=== PATIENT | male | born 1975 | race American Indian/Alaskan Native ===

== ENCOUNTER 2017-04-11 19:56 | Inpatient (IN) | payer SELFPAY ==
[2017-04-11] MEDS ORDERED: NACL 0.9% 500 ML 500 ML IV ONE (20:11)
--- NOTE | 2017-04-11 20:44 | XRay Report ---
FINAL REPORT PROCEDURE: XR CHEST 1V AP TECHNIQUE: Chest radiograph anteroposterior view. CPT 30645 HISTORY: possible Sepsis COMPARISON: No prior studies are available for comparison. FINDINGS: Heart: Normal. Mediastinum/Vessels: Normal. Lungs/Pleural space: Normal. Bony thorax: No acute osseous abnormality. Life support devices: None. IMPRESSION: No acute cardiopulmonary abnormality.
[2017-04-11 20:58] LABS: Albumin 4.1 g/dL (3.9-5); Albumin/Globulin Ratio 1.6 %; BUN/Creatinine Ratio 12.63; Bilirubin,Total 1.2 mg/dL (0.1-1.2); Calcium 9.9 mg/dL (8.4-10.2); Chloride 94.7 mmol/L (98-107); Potassium 3.4 mmol/L (3.6-5.0); Total Protein 6.7 g/dL (6.3-8.2)
[2017-04-11 20:59] LABS: Basophils % (Auto) 0.2 % (0.0-1.8); Eosinophils % (Auto) 0.3 % (0.0-4.3); Hematocrit 44.4 % (35.5-45.6); Hemoglobin 14.3 gm/dl (11.8-15.2); Mean Corpuscular HGB Conc 32 % (32-34); Mean Corpuscular Hemoglobin 28 pg (28-32); Mean Corpuscular Volume 88 fl (84-94); Platelet Count 117 K/mm3 (140-440); Red Blood Count 5.07 M/mm3 (3.65-5.03); Red Cell Distribution Width 16.1 % (13.2-15.2); White Blood Count 13.7 K/mm3 (4.5-11.0)
[2017-04-11 21:27] LABS: INR 1.05 (0.87-1.13)
[2017-04-11 21:54] LABS: Bilirubin,Urine NEG (Negative); Blood,Urine MOD (Negative); Ketones,Urine TR mg/dL (Negative); Leukocyte Esterase,Urine MOD (Negative); Mucus,Urine FEW /HPF; Nitrite,Urine NEG (Negative); Urobilinogen,Urine < 2.0 mg/dL (<2.0)
[2017-04-11] MEDS ORDERED: NACL 0.9% 1000 ML IV ONE (22:05)
[2017-04-11] MEDS ORDERED: MAXIPIME/NS 2 GM/100 ML 2 GM/100 ML BAG IV ONE (22:05)
--- NOTE | 2017-04-11 22:12 | Emergency Department Report ---
ED Fever HPI - General Chief Complaint: Fever Stated Complaint: CONNIE, DIARRHEA, NO ENERGY Time Seen by Provider: 04/11/17 21:59 Source: patient - History of Present Illness Initial Comments: Patient is a 41-year-old male with a history of renal transplant here with 3 days of worsening weakness fever or chills. Patient states that he had a fever subjectively at home but believes it's resolved now. He feels weak and has been unable to get out of his bed for the last couple days. No nausea vomiting abdominal pain chest pain. He does not have cough. No other infectious exposures. He has been taking his transplant medications. Timing/Duration: intermittent Fever Severity/Quality: subjective Associated Symptoms: muscle aches, weakness. denies: abdominal pain, chest pain , confusion, nausea/vomiting, shortness of breath, stiff neck ED Review of Systems ROS: Stated complaint: CONNIE, DIARRHEA, NO ENERGY Other details as noted in HPI Constitutional: denies: fever, malaise Eyes: denies: eye pain, vision change ENT: denies: ear pain, throat pain, dental pain Respiratory: denies: cough, orthopnea Gastrointestinal: denies: nausea, vomiting, constipation Genitourinary: denies: urgency, dysuria Neurological: denies: headache, weakness Psychiatric: denies: anxiety ED Past Medical Hx - Past Medical History Previous Medical History?: Yes Hx Hypertension: Yes Additional medical history: RF - Surgical History Past Surgical History?: Yes Additional Surgical History: Kidney Transplant. Bilateral Knee. Dyalysis Shunts - Family History Family history: no significant - Social History Smoking Status: Current Some Day Smoker Substance Use Type: None - Medications Home Medications: Home Medications Medication Instructions Recorded Confirmed Last Taken Type Mycophenolate 500 mg PO BID 04/11/17 04/11/17 Unknown History Prednisone 5 mg PO DAILY 04/11/17 04/11/17 Unknown History amLODIPine 5 mg PO DAILY 04/11/17 04/11/17 Unknown History ED Physical Exam - General Limitations: No Limitations General appearance: alert, in no apparent distress - Head Head exam: Present: atraumatic, normocephalic - Eye Eye exam: Present: normal appearance - Respiratory Respiratory exam: Present: normal lung sounds bilaterally, respiratory distress - Cardiovascular Cardiovascular Exam: Present: regular rate, normal rhythm - GI/Abdominal GI/Abdominal exam: Present: soft. Absent: distended - Extremities Exam Extremities exam: Present: normal inspection, full ROM - Back Exam Back exam: Present: normal inspection, full ROM - Neurological Exam Neurological exam: Present: alert, oriented X3 ED Course Vital Signs 04/11/17 04/11/17 20:00 22:19 Temperature 98.2 F 98.2 F Pulse Rate 96 H 85 Respiratory 20 20 Rate Blood Pressure 124/85 123/72 [Right] O2 Sat by Pulse 96 97 Oximetry ED Medical Decision Making - Lab Data Result diagrams: 04/11/17 20:19 04/11/17 20:19 Laboratory Results - last 24 hr 04/11/17 04/11/17 04/11/17 20:19 20:19 20:19 WBC 13.7 H RBC 5.07 H Hgb 14.3 Hct 44.4 MCV 88 MCH 28 MCHC 32 RDW 16.1 H Plt Count 117 L Lymph % (Auto) 7.8 L [place] % (Auto) 6.6 Eos % (Auto) 0.3 Baso % (Auto) 0.2 Lymph # 1.1 L [place] # 0.9 H Eos # 0.0 Baso # 0.0 Seg Neutrophils % 85.1 H Seg Neutrophils # 11.7 H PT 14.2 INR 1.05 VBG pH Sodium 135 L Potassium 3.4 L Chloride 94.7 L Carbon Dioxide 20 L Anion Gap 24 BUN 24 H Creatinine 1.9 H Estimated GFR 48 BUN/Creatinine Ratio 12.63 Glucose 107 H Lactic Acid Calcium 9.9 Total Bilirubin 1.20 AST 15 ALT 9 Alkaline Phosphatase 70 Total Protein 6.7 Albumin 4.1 Albumin/Globulin Ratio 1.6 Urine Color Urine Turbidity Urine pH Ur Specific [place] Urine Protein Urine Glucose (UA) Urine Ketones Urine Blood Urine Nitrite Urine Bilirubin Urine Urobilinogen Ur Leukocyte Esterase Urine WBC (Auto) Urine RBC (Auto) U Epithel Cells (Auto) Urine Mucus 04/11/17 04/11/17 04/11/17 20:19 20:19 20:22 WBC RBC Hgb Hct MCV MCH MCHC RDW Plt Count Lymph % (Auto) [place] % (Auto) Eos % (Auto) Baso % (Auto) Lymph # [place] # Eos # Baso # Seg Neutrophils % Seg Neutrophils # PT INR VBG pH 7.384 Sodium Potassium Chloride Carbon Dioxide Anion Gap BUN Creatinine Estimated GFR BUN/Creatinine Ratio Glucose Lactic Acid 0.80 Calcium Total Bilirubin AST ALT Alkaline Phosphatase Total Protein Albumin Albumin/Globulin Ratio Urine Color Yellow Urine Turbidity Clear Urine pH 5.0 Ur Specific [place] 1.011 Urine Protein 30 mg/dl Urine Glucose (UA) Neg Urine Ketones Tr Urine Blood Mod Urine Nitrite Neg Urine Bilirubin Neg Urine Urobilinogen < 2.0 Ur Leukocyte Esterase Mod Urine WBC (Auto) 20.0 H Urine RBC (Auto) 9.0 U Epithel Cells (Auto) 2.0 Urine Mucus Few - Medical Decision Making Patient is a 41-year-old male with likely sepsis. He has a history of renal transplant and is on immunosuppressants. His white count 13.7 with a urine WBC of 29. Given these findings I would treat him for sepsis. He is ordered 30 mL/ kg IV fluid cefepime for IV antibiotics he has been pancultured. Portions of this chart were dictated with dictation software. There may be dictation errors contained within this note. Critical Care Time: Yes (35) Critical care attestation.: If time is entered above; I have spent that time in minutes in the direct care of this critically ill patient, excluding procedure time. Critical Care Time: 35 ED Disposition Clinical Impression: Sepsis, UTI (urinary tract infection) Disposition: DC-[id number] OP ADMIT IP TO THIS HOSP Is pt being admited?: Yes Condition: Stable Referrals: PRIMARY CARE, [Primary Care Provider] - 3-5 Days
[2017-04-12] MEDS ORDERED: ZOFRAN IV PRN (01:14)
[2017-04-12] MEDS ORDERED: TYLENOL PO PRN (01:14)
[2017-04-12] MEDS ORDERED: DULCOLAX PR PRN (01:14)
[2017-04-12] MEDS ORDERED: PERCOCET 5/325 PO PRN (01:14)
--- NOTE | 2017-04-12 04:27 | History and Physical Report ---
History of Present Illness Date of examination: 04/12/17 Date of admission: 04/12/17 01:14 History of present illness: 41 -year-old man with a history of kidney transplant, hypertension comes emergency room with complaining of weak, difficulty doing his ADLs. Complaining of fever chills Patient denies chest pain, palpitation, shortness of breath, cough, abdominal pain, hematochezia, dysuria, frequency, focal weakness, dysarthria, polydipsia polyuria, hot or cold intolerance, easy bruisability, or rash or bleeding from mucosal membrane, rhinorrhea, epistaxis, earache, tinnitus, blurry vision, eye discharge, anxiety, depression. Other review of systems negative PAST SURGICAL HISTORY: Kidney transplant SOCIAL HISTORY: Denies alcohol, drugs, smoke cigarettes FAMILY HISTORY: Hypertension Medications and Allergies Allergies Allergy/AdvReac Type Severity Reaction Status Date / Time aspirin AdvReac Unknown Verified 04/11/17 20:10 Home Medications Medication Instructions Recorded Confirmed Last Taken Type Mycophenolate 500 mg PO BID 04/11/17 04/11/17 Unknown History Prednisone 5 mg PO DAILY 04/11/17 04/11/17 Unknown History amLODIPine 5 mg PO DAILY 04/11/17 04/11/17 Unknown History Active Meds: Active Medications Acetaminophen (Tylenol) 650 mg PO Q4H PRN PRN Reason: Pain MILD(1-3)/Fever >100.5/BEGUM Bisacodyl (Dulcolax) [address] QDAY PRN PRN Reason: Constipation unrelieved by MOM Ceftriaxone Sodium (Rocephin/Ns 1 Gm/50 Ml) 1 gm in 50 mls @ 100 mls/hr IV Q24H CHANELLE Miscellaneous Medication (Amlodipine) 5 mg PO DAILY CHANELLE Miscellaneous Medication (Mycophenolate) 500 mg PO BID CHANELLE Miscellaneous Medication (Prednisone) 5 mg PO DAILY CHANELLE Ondansetron HCl (Zofran) 4 mg IV Q8H PRN PRN Reason: N/V unrelieved by Reglan Oxycodone/Acetaminophen (Percocet 5/325) 1 tab PO Q6H PRN PRN Reason: Pain, Moderate (4-6) Exam - Physical Exam Narrative exam: Gen. appearance: Patient lying in bed, no apparent distress HEENT: Normocephalic, atraumatic, pupils equally round and reactive to light, extraocular movement intact, and no sclericterus,. No JVD or thyromegaly or nodule,neck supple, no carotid bruit ,mucous membranes moist, no exudate or erythema Heart: S1, S2, regular rate and rhythm Lungs: Clear to auscultation bilaterally, breathing comfortable Abdomen: Positive bowel sounds, nontender, nondistended, no organomegaly Extremity: No edema, cyanosis, clubbing Skin: No rash, nodules, warm, dry Neuro: Oriented 3, cranial nerves II-12 intact, speech is fluent, motor and sensory intact - Constitutional Vitals: Temp Pulse Resp BP Pulse Ox 98 F 74 16 126/63 96 04/11/17 23:40 04/12/17 01:38 04/12/17 01:38 04/12/17 01:38 04/12/17 01:38 Results - Labs CBC & Chem 7: 04/11/17 20:19 04/11/17 20:19 Assessment and Plan Failure to thrive UTI s/p Kidney transplant Admit to medicine Diet IV Rocephin, IV fluids, continue outpatient medications, start DVT prophylaxis
[2017-04-12] MEDS ORDERED: NACL 0.9% 1000 ML 1,000 ML IV SCH (05:00)
[2017-04-12] MEDS: DELTASONE PO SCH (09:31)
[2017-04-12] MEDS: CELLCEPT PO SCH ×2 (09:32→22:15)
[2017-04-12] MEDS: ROCEPHIN/NS 1 GM/50 ML 1 GM/50 ML BAG IV SCH (09:33)
[2017-04-12] MEDS ORDERED: NORVASC PO SCH (10:00)
[2017-04-12] MEDS ORDERED: NON-FORMULARY (Amlodipine 5 MG) PO SCH (10:00)
[2017-04-12] MEDS ORDERED: NON-FORMULARY (Mycophenolate 500 MG) PO SCH (10:00)
[2017-04-12] MEDS ORDERED: NON-FORMULARY (Prednisone 5 MG) PO SCH (10:00)
--- NOTE | 2017-04-13 01:22 | Admit Criteria Form ---
Admission Criteria Documentation: URINARY COMPLICATIONS Clinical Indications for Inpatient Care (Place 'X' for any and all applicable criteria): Ongoing inpatient care may be indicated for urinary complications with ANY ONE of the following: [X ]I. Urinary tract infection requiring inpatient care as indicated by ANY ONE of the following(8)(19)(20): [ ]a) Severe symptoms (eg, high fever, severe pain) [ ]b) Vomiting or dehydration requiring ongoing inpatient care [X ]c) IV antibiotic needs that cannot be managed at lower level of care [ ]d) Hemodynamic instability [ ]e) Obstruction of collecting system by stone or tumor [ ]II. Urinary retention requiring drainage or surgery (3)(4)(5)(17)(18) [ ]III. Renal failure (Use Renal Failure Criteria for further information.) [ ]IV. Oliguria(30) [ ]V. Post obstructive diuresis requiring close monitoring of urine output and intravenous compensation for excessive fluid losses(33) Extended stay beyond goal length of stay for primary condition may be needed until ALL of the following are present(3)(4)(5)(8): [ ]a) Renal function (creatinine) at baseline, or daily decreases in creatinine consistent with renal function return [ ]b) Voiding adequately or with urinary catheter or percutaneous suprapubic tube and management regimen in place that is performable at lower level of care. [ ]c) Urine output adequate [ ]d) Fever absent or resolving [ ]e) Infection absent or treatable at next level of care The original [employer] content created by [employer] has been revised. The portions of the content which have been revised are identified through the use of italic text or in bold, and [facility] has neither reviewed nor approved the modified material. All other unmodified content is copyright [employer] Please see references footnoted in the original [employer] edition 2016 Admission Criteria Met: Yes
[2017-04-13 05:38] LABS: Basophils % (Auto) 0.1 % (0.0-1.8); Hematocrit 39.4 % (35.5-45.6); Hemoglobin 13.1 gm/dl (11.8-15.2); Mean Corpuscular HGB Conc 33 % (32-34); Mean Corpuscular Hemoglobin 29 pg (28-32); Mean Corpuscular Volume 87 fl (84-94); Platelet Count 127 K/mm3 (140-440); Red Blood Count 4.56 M/mm3 (3.65-5.03); White Blood Count 8.7 K/mm3 (4.5-11.0)
[2017-04-13 05:51] LABS: Anion Gap 19 mmol/L; BUN/Creatinine Ratio 15.71; Blood Urea Nitrogen 22 mg/dL (9-20); Calcium 9.9 mg/dL (8.4-10.2); Carbon Dioxide 22 mmol/L (22-30); Chloride 99.5 mmol/L (98-107); Glucose 98 mg/dL (75-100); Potassium 3.3 mmol/L (3.6-5.0); Sodium 137 mmol/L (137-145)
[2017-04-13 07:53] VITALS: BP 181/107
--- NOTE | 2017-04-13 08:27 | Progress Note ---
Assessment and Plan Assessment and plan: 41 -year-old man with a history of kidney transplant, hypertension comes emergency room with complaining of weak, difficulty doing his ADLs. Complaining of fever chills Failure to thrive Sepsis/UTI * improving, * continue rocephin , * fup urine cx * Blood cx NGTD DULCE in a Kidney transplant patient -likely due to sepsis and vasomotor nephropathy * continue anti-rejection meds * continue IVF Htn urgency increase norvasc dose to 10mg Hypokalemia * replete PO DVT ppx lovenox Hospitalist Physical - Constitutional Vitals: Temp Pulse Resp BP Pulse Ox 97.6 F 94 H 20 181/107 98 04/13/17 07:49 04/13/17 07:49 04/13/17 07:49 04/13/17 07:49 04/13/17 08:06 Results - Labs CBC & Chem 7: 04/13/17 04:54 04/13/17 04:54 Labs: Laboratory Last Values WBC 8.7 K/mm3 (4.5-11.0) 04/13/17 04:54 RBC 4.56 M/mm3 (3.65-5.03) 04/13/17 04:54 Hgb 13.1 gm/dl (11.8-15.2) 04/13/17 04:54 Hct 39.4 % (35.5-45.6) 04/13/17 04:54 MCV 87 fl (84-94) 04/13/17 04:54 MCH 29 pg (28-32) 04/13/17 04:54 MCHC 33 % (32-34) 04/13/17 04:54 RDW 16.0 % (13.2-15.2) H 04/13/17 04:54 Plt Count 127 K/mm3 (140-440) L 04/13/17 04:54 Lymph % (Auto) 14.6 % (13.4-35.0) 04/13/17 04:54 [place] % (Auto) 4.7 % (0.0-7.3) 04/13/17 04:54 Eos % (Auto) 1.0 % (0.0-4.3) 04/13/17 04:54 Baso % (Auto) 0.1 % (0.0-1.8) 04/13/17 04:54 Lymph # 1.3 K/mm3 (1.2-5.4) 04/13/17 04:54 [place] # 0.4 K/mm3 (0.0-0.8) 04/13/17 04:54 Eos # 0.1 K/mm3 (0.0-0.4) 04/13/17 04:54 Baso # 0.0 K/mm3 (0.0-0.1) 04/13/17 04:54 Seg Neutrophils % 79.6 % (40.0-70.0) H 04/13/17 04:54 Seg Neutrophils # 6.9 K/mm3 (1.8-7.7) 04/13/17 04:54 PT 14.2 Sec. (12.2-14.9) 04/11/17 20:19 INR 1.05 (0.87-1.13) 04/11/17 20:19 VBG pH 7.384 (7.320-7.420) 04/11/17 20:19 Sodium 137 mmol/L (137-145) 04/13/17 04:54 Potassium 3.3 mmol/L (3.6-5.0) L 04/13/17 04:54 Chloride 99.5 mmol/L (98-107) 04/13/17 04:54 Carbon Dioxide 22 mmol/L (22-30) 04/13/17 04:54 Anion Gap 19 mmol/L 04/13/17 04:54 BUN 22 mg/dL (9-20) H 04/13/17 04:54 Creatinine 1.4 mg/dL (0.8-1.5) 04/13/17 04:54 Estimated GFR > 60 ml/min 04/13/17 04:54 BUN/Creatinine Ratio 15.71 % 04/13/17 04:54 Glucose 98 mg/dL (75-100) 04/13/17 04:54 Lactic Acid 0.60 mmol/L (0.7-2.0) L 04/12/17 01:11 Calcium 9.9 mg/dL (8.4-10.2) 04/13/17 04:54 Total Bilirubin 1.20 mg/dL (0.1-1.2) 04/11/17 20:19 AST 15 units/L (5-40) 04/11/17 20:19 ALT 9 units/L (7-56) 04/11/17 20:19 Alkaline Phosphatase 70 units/L (35-129) 04/11/17 20:19 Total Protein 6.7 g/dL (6.3-8.2) 04/11/17 20:19 Albumin 4.1 g/dL (3.9-5) 04/11/17 20:19 Albumin/Globulin Ratio 1.6 % 04/11/17 20: Urine Color Yellow (Yellow) 04/11/17 20:22 Urine Turbidity Clear (Clear) 04/11/17 20: Urine pH 5.0 (5.0-7.0) 04/11/17 20: Ur Specific [place] 1.011 (1.003-1.030) 04/11/17 20: Urine Protein 30 mg/dl mg/dL (Negative) 04/11/17 20:22 Urine Glucose (UA) Neg mg/dL (Negative) 04/11/17 20: Urine Ketones Tr mg/dL (Negative) 04/11/17 20:22 Urine Blood Mod (Negative) 04/11/17 20:22 Urine Nitrite Neg (Negative) 04/11/17 20:22 Urine Bilirubin Neg (Negative) 04/11/17 20:22 Urine Urobilinogen < 2.0 mg/dL (<2.0) 04/11/17 20:22 Ur Leukocyte Esterase Mod (Negative) 04/11/17 20:22 Urine WBC (Auto) 20.0 /HPF (0.0-6.0) H 04/11/17 20:22 Urine RBC (Auto) 9.0 /HPF (0.0-6.0) 04/11/17 20:22 U Epithel Cells (Auto) 2.0 /HPF (0-13.0) 04/11/17 20:22 Urine Mucus Few /HPF 04/11/17 20:22
[2017-04-13] MEDS ORDERED: NORVASC PO SCH ×2 (08:36→10:00)
[2017-04-13] MEDS ORDERED: K-DUR PO ONE (09:00)
[2017-04-13] MEDS: DELTASONE PO SCH (12:39)
[2017-04-13] MEDS: ROCEPHIN/NS 1 GM/50 ML 1 GM/50 ML BAG IV SCH (12:40)
[2017-04-13] MEDS: CELLCEPT PO SCH (12:41)
--- NOTE | 2017-04-13 17:59 | Event Note ---
Date: 04/13/17 RN alerted me that Patient eloped, he was not seen by me
== END 2017-04-13 15:00 | disposition left against medical advice (07) | DRG 872 ==
LOC: ED 19:56 → 3A 04-12 01:14
PROVIDERS: ADMIT Internal Medicine; ATTEND Internal Medicine
DX: A41.9 Sepsis, unspecified organism (principal); N39.0 Urinary tract infection, site not specified; Z94.0 Kidney transplant status; I10 Essential (primary) hypertension; Z82.49 Family history of ischemic heart disease and other diseases of the circulatory system; Z88.6 Allergy status to analgesic agent; R62.7 Adult failure to thrive; Z53.21 Procedure and treatment not carried out due to patient leaving prior to being seen by health care provider
CPT/HCPCS: 36415; 71010; 80048; 80053; 81001; 82140; 82805; 85025; 85610; 87040; 87086; 93005; 93010; 96365; J0692; J0696; J7030; J7512; J7517

== ENCOUNTER 2020-09-05 16:51 | Emergency (ER) | payer OTHER ==
[2020-09-05 17:27] VITALS: BP 176/112
[2020-09-05] MEDS ORDERED: ACETAMINOPHEN 500 MG TAB PO ONE (19:40)
[2020-09-05] MEDS ORDERED: CYCLOBENZAPRINE 10 MG TAB PO ONE (19:42)
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
== END 2020-09-05 21:29 | disposition home or self-care (01) ==
LOC: ED 16:51
DX: M62.830 Muscle spasm of back (principal); M62.838 Other muscle spasm; M54.5 Low back pain; I10 Essential (primary) hypertension; F17.200 Nicotine dependence, unspecified, uncomplicated; V49.59XA Passenger injured in collision with other motor vehicles in traffic accident, initial encounter; Y93.89 Activity, other specified; Y92.488 Other paved roadways as the place of occurrence of the external cause; Y99.8 Other external cause status
CPT/HCPCS: 72072; 72100; 72125; 99284

== ENCOUNTER 2021-02-13 02:05 | Emergency (ER) | payer SELFPAY ==
[2021-02-13 03:01] LABS: Basophils # (Auto) 0.1 K/mm3 (0.0-0.1); Basophils % (Auto) 0.7 % (0.0-1.8); Eosinophils % (Auto) 0.4 % (0.0-4.3); Hematocrit 43.3 % (35.5-45.6); Hemoglobin 14.1 gm/dl (11.8-15.2); Lymphocytes # (Auto) 1.3 K/mm3 (1.2-5.4); Lymphocytes % (Auto) 14.3 % (13.4-35.0); Mean Corpuscular HGB Conc 33 % (32-34); Mean Corpuscular Volume 89 fl (84-94); Monocytes # (Auto) 0.6 K/mm3 (0.0-0.8); Platelet Count 219 K/mm3 (140-440); Red Blood Count 4.86 M/mm3 (3.65-5.03); Red Cell Distribution Width 17.6 % (13.2-15.2)
[2021-02-13 03:06] LABS: Calcium 10.6 mg/dL (8.4-10.2)
[2021-02-13] MEDS ORDERED: SODIUM CHLORIDE 0.9% 500 ML 500 ML IV ONE (09:20)
--- NOTE | 2021-02-13 09:33 | Emergency Department Report ---
ED General Adult HPI - General Chief complaint: Medical Clearance Stated complaint: PAIN;FINGER NUMBNESS PUI?: No Time Seen by Provider: 02/13/21 09:14 Source: patient Mode of arrival: Ambulatory Limitations: No Limitations - History of Present Illness Initial comments: Mr. [id number] -[place] male that comes to the emergency room complaining of fatigue and generalized body aches. Of importance he states that he has had a kidney transplant 7 years ago and he has run out of his CellCept and prednisone. He has not taken it for 2 days. He does state that he is on a third immune suppression drug but he cannot recall the name of it he says it starts with a T. He is also taking Norvasc for his blood pressure. However, he states he has been here so long in the ER he has not taken it this morning. Patient's radiology equipment servicer is at [facility]. Patient has not required HD since prior to his transplant. Patient denies fever or chills. He denies shortness of breath or chest pain. He denies any nausea or vomiting. He denies fever or chills. Patient states this is how he feels when he has urinary tract infection. He denies being concerned for STDs. He denies penile discharge. Patient is ambulatory nontoxic and [id number] on arrival to ER. -: Gradual, days(s) Consistency: intermittent Improves with: none Worsens with: none Associated Symptoms: denies other symptoms Treatments Prior to Arrival: none - Related Data Home Medications Medication Instructions Recorded Confirmed Last Taken Mycophenolate 500 mg PO BID 04/11/17 04/11/17 Unknown Prednisone 5 mg PO DAILY 04/11/17 04/11/17 Unknown amLODIPine 5 mg PO DAILY 04/11/17 04/11/17 Unknown Previous Rx's Medication Instructions Recorded Last Taken Type Mycophenolate [Cellcept] 500 mg PO BID #14 tablet 02/13/21 Unknown Rx levoFLOXacin [Levaquin] 250 mg PO QDAY #5 tablet 02/13/21 Unknown Rx predniSONE [Deltasone] 5 mg PO QDAY #14 tab 02/13/21 Unknown Rx Allergies Allergy/AdvReac Type Severity Reaction Status Date / Time aspirin AdvReac Unknown Verified 04/11/17 20:10 ED Review of Systems ROS: Stated complaint: PAIN;FINGER NUMBNESS Other details as noted in HPI Comment: All other systems reviewed and negative ED Past Medical Hx - Past Medical History Previous Medical History?: Yes Hx Hypertension: Yes Hx Renal Disease: Yes (sp transplant 2017) Additional medical history: med non adherence - Surgical History Past Surgical History?: Yes Additional Surgical History: Kidney Transplant-2017. Bilateral Knee. Dyalysis Shunts-nonpatent per patient - Social History Smoking Status: Current Every Day Smoker - Medications Home Medications: Home Medications Medication Instructions Recorded Confirmed Last Taken Type Mycophenolate 500 mg PO BID 04/11/17 04/11/17 Unknown History Prednisone 5 mg PO DAILY 04/11/17 04/11/17 Unknown History amLODIPine 5 mg PO DAILY 04/11/17 04/11/17 Unknown History Mycophenolate [Cellcept] 500 mg PO BID #14 tablet 02/13/21 Unknown Rx levoFLOXacin [Levaquin] 250 mg PO QDAY #5 tablet 02/13/21 Unknown Rx predniSONE [Deltasone] 5 mg PO QDAY #14 tab 02/13/21 Unknown Rx ED Physical Exam - General Limitations: No Limitations General appearance: alert, in no apparent distress - Head Head exam: Present: atraumatic, normocephalic - Eye Eye exam: Present: normal appearance - ENT ENT exam: Present: mucous membranes moist - Neck Neck exam: Present: normal inspection - Respiratory Respiratory exam: Present: normal lung sounds bilaterally. Absent: respiratory distress - Cardiovascular Cardiovascular Exam: Present: regular rate, normal rhythm. Absent: systolic murmur, diastolic murmur, rubs, gallop - GI/Abdominal GI/Abdominal exam: Present: soft, normal bowel sounds - Rectal Rectal exam: Present: deferred - Extremities Exam Extremities exam: Present: normal inspection - Back Exam Back exam: Present: normal inspection - Neurological Exam Neurological exam: Present: alert, oriented X3 - Psychiatric Psychiatric exam: Present: normal affect, normal mood - Skin Skin exam: Present: warm, dry, intact, normal color. Absent: rash ED Course Vital Signs 02/13/21 02/13/21 02/13/21 02:20 06:37 10:41 Temperature 98.8 F Pulse Rate 111 H 72 88 Respiratory 17 16 Rate Blood Pressure 172/110 Blood Pressure 154/101 175/105 [Right] O2 Sat by Pulse 95 100 99 Oximetry ED Medical Decision Making - Lab Data Result diagrams: 02/13/21 02:33 02/13/21 09:20 - Radiology Data Radiology results: report reviewed, image reviewed No acute process - Medical Decision Making Labs 02/13/21 02/13/21 02/13/21 02:33 02:33 09:20 WBC 9.4 RBC 4.86 Hgb 14.1 Hct 43.3 MCV 89 MCH 29 MCHC 33 RDW 17.6 H Plt Count 219 Lymph % (Auto) 14.3 [place] % (Auto) 6.0 Eos % (Auto) 0.4 Baso % (Auto) 0.7 Lymph # (Auto) 1.3 [place] # (Auto) 0.6 Eos # (Auto) 0.0 Baso # (Auto) 0.1 Seg Neutrophils % 78.6 H Seg Neutrophils # 7.4 Sodium 142 139 Potassium 4.6 4.2 Chloride 105.5 105.0 Carbon Dioxide 25 25 Anion Gap 16 13 BUN 26 H 26 H Creatinine 2.2 H 2.1 H Estimated GFR 40 42 BUN/Creatinine Ratio 12 12 Glucose 74 L 87 Calcium 10.6 H 9.9 Phosphorus 3.80 Total Creatine Kinase NT-Pro-B Natriuret Pep 02/13/21 09:20 WBC RBC Hgb Hct MCV MCH MCHC RDW Plt Count Lymph % (Auto) [place] % (Auto) Eos % (Auto) Baso % (Auto) Lymph # (Auto) [place] # (Auto) Eos # (Auto) Baso # (Auto) Seg Neutrophils % Seg Neutrophils # Sodium Potassium Chloride Carbon Dioxide Anion Gap BUN Creatinine Estimated GFR BUN/Creatinine Ratio Glucose Calcium Phosphorus Total Creatine Kinase 141 NT-Pro-B Natriuret Pep 182.3 Vital Signs 02/13/21 02/13/21 02:20 06:37 Temperature 98.8 F Pulse Rate 111 H 72 Respiratory 17 16 Rate Blood Pressure 172/110 Blood Pressure 154/101 [Right] O2 Sat by Pulse 95 100 Oximetry Lab Results 02/13/21 02/13/21 02/13/21 Range/Units 02:33 02:33 09:20 WBC 9.4 (4.5-11.0) K/mm3 RBC 4.86 (3.65-5.03) M/mm3 Hgb 14.1 (11.8-15.2) gm/dl Hct 43.3 (35.5-45.6) % MCV 89 (84-94) fl MCH 29 (28-32) pg MCHC 33 (32-34) % RDW 17.6 H (13.2-15.2) % Plt Count 219 (140-440) K/mm3 Lymph % (Auto) 14.3 (13.4-35.0) % [place] % (Auto) 6.0 (0.0-7.3) % Eos % (Auto) 0.4 (0.0-4.3) % Baso % (Auto) 0.7 (0.0-1.8) % Lymph # (Auto) 1.3 (1.2-5.4) K/mm3 [place] # (Auto) 0.6 (0.0-0.8) K/mm3 Eos # (Auto) 0.0 (0.0-0.4) K/mm3 Baso # (Auto) 0.1 (0.0-0.1) K/mm3 Seg Neutrophils % 78.6 H (40.0-70.0) % Seg Neutrophils # 7.4 (1.8-7.7) K/mm3 Sodium 142 139 (137-145) mmol/L Potassium 4.6 4.2 (3.6-5.0) mmol/L Chloride 105.5 105.0 (98-107) mmol/L Carbon Dioxide 25 25 (22-30) mmol/L Anion Gap 16 13 mmol/L BUN 26 H 26 H (9-20) mg/dL Creatinine 2.2 H 2.1 H (0.8-1.3) mg/dL Estimated GFR 40 42 ml/min BUN/Creatinine Ratio 12 12 % Glucose 74 L 87 (75-100) mg/dL Calcium 10.6 H 9.9 (8.4-10.2) mg/dL Phosphorus 3.80 (2.5-4.5) mg/dL Total Creatine Kinase (55-170) units/L NT-Pro-B Natriuret Pep (0-450) pg/mL Urine Color (Yellow) Urine Turbidity (Clear) Urine pH (5.0-7.0) Ur Specific [place] (1.003-1.030) Urine Protein (Negative) mg/dL Urine Glucose (UA) (Negative) mg/dL Urine Ketones (Negative) mg/dL Urine Blood (Negative) Urine Nitrite (Negative) Urine Bilirubin (Negative) Urine Urobilinogen (<2.0) mg/dL Ur Leukocyte Esterase (Negative) Urine WBC (Auto) (0.0-6.0) /HPF Urine RBC (Auto) (0.0-6.0) /HPF U Epithel Cells (Auto) (0-13.0) /HPF 02/13/21 02/13/21 Range/Units 09:20 10:40 WBC (4.5-11.0) K/mm3 RBC (3.65-5.03) M/mm3 Hgb (11.8-15.2) gm/dl Hct (35.5-45.6) % MCV (84-94) fl MCH (28-32) pg MCHC (32-34) % RDW (13.2-15.2) % Plt Count (140-440) K/mm3 Lymph % (Auto) (13.4-35.0) % [place] % (Auto) (0.0-7.3) % Eos % (Auto) (0.0-4.3) % Baso % (Auto) (0.0-1.8) % Lymph # (Auto) (1.2-5.4) K/mm3 [place] # (Auto) (0.0-0.8) K/mm3 Eos # (Auto) (0.0-0.4) K/mm3 Baso # (Auto) (0.0-0.1) K/mm3 Seg Neutrophils % (40.0-70.0) % Seg Neutrophils # (1.8-7.7) K/mm3 Sodium (137-145) mmol/L Potassium (3.6-5.0) mmol/L Chloride (98-107) mmol/L Carbon Dioxide (22-30) mmol/L Anion Gap mmol/L BUN (9-20) mg/dL Creatinine (0.8-1.3) mg/dL Estimated GFR ml/min BUN/Creatinine Ratio % Glucose (75-100) mg/dL Calcium (8.4-10.2) mg/dL Phosphorus (2.5-4.5) mg/dL Total Creatine Kinase 141 (55-170) units/L NT-Pro-B Natriuret Pep 182.3 (0-450) pg/mL Urine Color Yellow (Yellow) Urine Turbidity Hazy (Clear) Urine pH 7.0 (5.0-7.0) Ur Specific [place] 1.015 (1.003-1.030) Urine Protein 100 mg/dl (Negative) mg/dL Urine Glucose (UA) Neg (Negative) mg/dL Urine Ketones Neg (Negative) mg/dL Urine Blood Neg (Negative) Urine Nitrite Neg (Negative) Urine Bilirubin Neg (Negative) Urine Urobilinogen < 2.0 (<2.0) mg/dL Ur Leukocyte Esterase Sm (Negative) Urine WBC (Auto) 27.0 H (0.0-6.0) /HPF Urine RBC (Auto) 4.0 (0.0-6.0) /HPF U Epithel Cells (Auto) 2.0 (0-13.0) /HPF 500 ML NS ROCEPHIN IV Labs noted including K and Phos Urine analysis was noted. Urine culture has been sent. WBC is normal. He has no fever. No CVA tenderness. No hypotension or tachycardia. Patient responded to the 500 and normal saline with increased urinary output and follow-up creatinine is downtrending. If you evaluate the lab trends in the EMR his creatinine is labile up into the twos at times. Patient states that he last saw his radiology equipment servicer 2 weeks ago and they did not give him refills on his medications he cannot tell me why. I have given patient his Norvasc for the morning. On reevaluation his blood pressure is trending down. I had a long discussion with the patient about his kidney. He knows that he should avoid nephrotoxins. He knows that he needs to follow-up with his radiology equipment servicer as soon as possible. Patient verbalizes understanding of discharge instructions. Patient is being discharged on renally dosed Levaquin for his UTI. I have explained to him that a urine culture was sent and that his radiology equipment servicer should call for the results. I have also told him that his radiology equipment servicer can call us to get copies of his lab work sent. On discharge patient is ambulatory, nontoxic and [id number]. He is taking p.o. He is urinating. He has verbalized understanding of the importance of following up with his radiology equipment servicer. Especially in the setting that the patient states that he would rather than get dialysis. Vital Signs 02/13/21 02/13/21 02/13/21 02:20 06:37 10:41 Temperature 98.8 F Pulse Rate 111 H 72 88 Respiratory 17 16 Rate Blood Pressure 172/110 Blood Pressure 154/101 175/105 [Right] O2 Sat by Pulse 95 100 99 Oximetry 02/13/21 12:57 Temperature Pulse Rate 88 Respiratory Rate Blood Pressure Blood Pressure 144/79 [Right] O2 Sat by Pulse Oximetry - Differential Diagnosis Rule out acute renal failure, UTI Critical care attestation.: If time is entered above; I have spent that time in minutes in the direct care of this critically ill patient, excluding procedure time. ED Disposition Clinical Impression: UTI (urinary tract infection), CKD (chronic kidney disease), Kidney transplant recipient Disposition: DC- TO HOME OR SELFCARE Is pt being admited?: No Does the pt Need Aspirin: No Condition: Stable Instructions: Urinary Tract Infection, Adult, [id number] Additional Instructions: You should avoid anything that is nephrotoxic. This includes ibuprofen. This includes alcohol. You may use Tylenol for pain. Medications as ordered today. Do not stop your immune suppression. Take your blood pressure medicine daily. You should call today and make an appointment with your radiology equipment servicer to be reevaluated. Let him know that you were seen here and he can pull the results of your urine cultures. This will help him to assure you on the right medication. Renal diet. Stay well-hydrated with water. Prescriptions: Mycophenolate [Cellcept] 500 mg PO BID #14 tablet predniSONE [Deltasone] 5 mg PO QDAY #14 tab levoFLOXacin [Levaquin] 250 mg PO QDAY #5 tablet Referrals: PRIMARY MD BOZENA [Primary Care Provider] - 3-5 Days PAM LARA MD [Staff Physician] - 3-5 Days THA WHITLOCK MD [Staff Physician] - 3-5 Days Time of Disposition: 10:41
--- NOTE | 2021-02-13 09:45 | XRay Report ---
CHEST 2 VIEWS INDICATION / CLINICAL INFORMATION: sob. COMPARISON: 04/11/2017 FINDINGS: SUPPORT DEVICES: None. HEART / MEDIASTINUM: No significant abnormality. LUNGS / PLEURA: No significant pulmonary or pleural abnormality. No pneumothorax. ADDITIONAL FINDINGS: No significant additional findings. IMPRESSION: 1. No acute findings. Signer Name: Dago Kearns MD Signed: 02/13/2021 9:41 AM Workstation Name: [id number]
[2021-02-13 09:52] LABS: Calcium 9.9 mg/dL (8.4-10.2)
[2021-02-13] MEDS ORDERED: amLODIPine 5 MG TAB PO ONE (10:40)
[2021-02-13 11:15] LABS: Bilirubin,Urine NEG (Negative); Blood,Urine NEG (Negative); Color,Urine Yellow (Yellow); Urobilinogen,Urine < 2.0 mg/dL (<2.0)
[2021-02-13] MEDS ORDERED: cefTRIAXone/NS 1 GM/50 ML 1 GM/50 ML BAG IV ONE (11:30)
[2021-02-13 12:58] VITALS: BP 144/79
== END 2021-02-13 12:17 | disposition home or self-care (01) ==
LOC: ED 02:05
DX: I12.9 Hypertensive chronic kidney disease with stage 1 through stage 4 chronic kidney disease, or unspecified chronic kidney disease (principal); N18.9 Chronic kidney disease, unspecified; N39.0 Urinary tract infection, site not specified; F17.200 Nicotine dependence, unspecified, uncomplicated; Z94.0 Kidney transplant status; Z98.890 Other specified postprocedural states; Z79.899 Other long term (current) drug therapy; Z88.6 Allergy status to analgesic agent
CPT/HCPCS: 36415; 71046; 80048; 81001; 82550; 83880; 84100; 85025; 87086; 99284; J7040; 96360

== ENCOUNTER 2022-01-16 13:19 | Emergency (ER) | payer SELFPAY ==
--- NOTE | 2022-01-16 23:19 | Emergency Department Report ---
ED General Adult HPI - General Chief complaint: Abdominal Pain Stated complaint: WHOLE BODY PAIN Source: patient Mode of arrival: Ambulatory Limitations: No Limitations - History of Present Illness Initial comments: Patient 46-year-old -[place] male with history of hypertension and renal transplant 5 years ago. Patient states generalized body aches and bilateral lower extremity swelling. Patient denies fevers or chills there is no nausea no vomiting. No chest pain or shortness of breath no dizziness or lightheadedness is been no diaphoresis. Current medication regimen includes amlodipine, prednisone daily, antirejection meds patient does not recall name of med ications. Patient is following nephrology and is not on dialysis and makes normal urine per patient. Has been no cough no wheezing no stridor. Patient rates body ache pain at 4/10 achiness. Patient denies suspicious contact. Patient is COVID vaccinated. - Related Data Home Medications Medication Instructions Recorded Confirmed Last Taken Mycophenolate 500 mg PO BID 04/11/17 04/11/17 Unknown Prednisone 5 mg PO DAILY 04/11/17 04/11/17 Unknown amLODIPine 5 mg PO DAILY 04/11/17 04/11/17 Unknown Previous Rx's Medication Instructions Recorded Last Taken Type Mycophenolate [Cellcept] 500 mg PO BID #14 tablet 02/13/21 Unknown Rx levoFLOXacin [Levaquin] 250 mg PO QDAY #5 tablet 02/13/21 Unknown Rx predniSONE [Deltasone] 5 mg PO QDAY #14 tab 02/13/21 Unknown Rx Acetaminophen [Tylenol] 650 mg PO Q6H PRN #30 cap 01/17/22 Unknown Rx Albuterol Mdi (or & Nicu Only) 2 puff IH QID PRN #8.5 gram 01/17/22 Unknown Rx [ProAir HFA Inhaler] levoFLOXacin [Levaquin TAB] 500 mg PO QDAY 7 Days #7 tablet 01/17/22 Unknown Rx Allergies Allergy/AdvReac Type Severity Reaction Status Date / Time aspirin AdvReac Unknown Verified 04/11/17 20:10 ED Review of Systems ROS: Stated complaint: WHOLE BODY PAIN Other details as noted in HPI Constitutional: chills, malaise. denies: fever Eyes: denies: eye pain, eye discharge, vision change ENT: denies: ear pain, throat pain Respiratory: no symptoms reported Cardiovascular: denies: chest pain, palpitations Endocrine: no symptoms reported Gastrointestinal: denies: abdominal pain, nausea, vomiting, diarrhea Genitourinary: denies: urgency, dysuria Musculoskeletal: arthralgia, other (Generalized body aches bilateral lower extremity swelling) Skin: as per HPI Neurological: denies: headache, weakness, paresthesias Psychiatric: denies: anxiety, depression Hematological/Lymphatic: denies: easy bleeding, easy bruising ED Past Medical Hx - Past Medical History Previous Medical History?: Yes Hx Hypertension: Yes Hx Renal Disease: Yes (sp transplant 2017) Additional medical history: med non adherence - Surgical History Past Surgical History?: Yes Additional Surgical History: Kidney Transplant-2017. Bilateral Knee. Dyalysis Shunts-nonpatent per patient - Social History Smoking Status: Current Every Day Smoker - Medications Home Medications: Home Medications Medication Instructions Recorded Confirmed Last Taken Type Mycophenolate 500 mg PO BID 04/11/17 04/11/17 Unknown History Prednisone 5 mg PO DAILY 04/11/17 04/11/17 Unknown History amLODIPine 5 mg PO DAILY 04/11/17 04/11/17 Unknown History Mycophenolate [Cellcept] 500 mg PO BID #14 tablet 02/13/21 Unknown Rx levoFLOXacin [Levaquin] 250 mg PO QDAY #5 tablet 02/13/21 Unknown Rx predniSONE [Deltasone] 5 mg PO QDAY #14 tab 02/13/21 Unknown Rx Acetaminophen [Tylenol] 650 mg PO Q6H PRN #30 cap 01/17/22 Unknown Rx Albuterol Mdi (or & Nicu Only) 2 puff IH QID PRN #8.5 gram 01/17/22 Unknown Rx [ProAir HFA Inhaler] levoFLOXacin [Levaquin TAB] 500 mg PO QDAY 7 Days #7 tablet 01/17/22 Unknown Rx ED Physical Exam - General Limitations: No Limitations General appearance: alert, in no apparent distress - Head Head exam: Present: normocephalic - Eye Eye exam: Present: EOMI Pupils: Present: normal accommodation - ENT ENT exam: Present: mucous membranes moist - Neck Neck exam: Present: normal inspection, full ROM. Absent: tenderness, lymphadenopathy - Respiratory Respiratory exam: Present: normal lung sounds bilaterally. Absent: respiratory distress, wheezes, stridor, chest wall tenderness - Cardiovascular Cardiovascular Exam: Present: regular rate, normal rhythm, normal heart sounds. Absent: systolic murmur, diastolic murmur, rubs, gallop - GI/Abdominal GI/Abdominal exam: Present: soft, normal bowel sounds. Absent: distended, tenderness, guarding, rebound, rigid, bruit, hernia - Rectal Rectal exam: Present: deferred - Extremities Exam Extremities exam: Present: normal inspection, full ROM, normal capillary refill, pedal edema (Mild bilateral lower extremity swelling there is no calf tenderness no pain with dorsiflexion no numbness no paralysis distal pulses are intact to) - Back Exam Back exam: Present: normal inspection, full ROM. Absent: tenderness, CVA tenderness (R), CVA tenderness (L) - Neurological Exam Neurological exam: Present: alert, oriented X3, CN II-XII intact, normal gait - Expanded Neurological Exam Expanded Patient oriented to: Present: person, place, time Speech: Present: fluid speech Motor strength exam: RUE: 5, LUE: 5, RLE: 5, LLE: 5 Best Eye Response ([place]): (4) open spontaneously Best Motor Response ([place]): (6) obeys commands Best Verbal Response (Rebeca): (5) oriented [place] Total: 15 - Psychiatric Psychiatric exam: Present: normal affect, normal mood - Skin Skin exam: Present: warm, dry, intact, normal color ED Medical Decision Making - Lab Data Result diagrams: 01/16/22 23:31 01/16/22 23:31 - Radiology Data Radiology results: report reviewed, image reviewed Fluoro Time In Minutes: CHEST 2 VIEWS INDICATION / CLINICAL INFORMATION: cough malaise , chills,. FINDINGS: SUPPORT DEVICES: None. HEART / MEDIASTINUM: No significant abnormality. LUNGS / PLEURA: Slight increased opacity within the right lower lung suspicious for developing pneumonitis. The left lung is grossly unremarkable. Signer Name: Ashvin Davis MD Signed: 01/16/2022 11:33 PM Workstation Name: [id number] Transcribed By: BC Dictated By: Ashvin Davis MD Electronically Authenticated By: Ashvin Davis MD Signed Date/Time: 01/16/222332 DD/ 31 TD/TT: CT ABDOMEN AND PELVIS WITHOUT CONTRAST INDICATION / CLINICAL INFORMATION: Lower abd pain. Hx of a renal transplant 2017, Stone(s) vs. Pyelo. TECHNIQUE: Axial CT images were obtained through the abdomen and pelvis without IV contrast. All CT scans at this location are performed using CT dose reduction for ALARA by means of automated exposure control. COMPARISON: None available. FINDINGS: LOWER CHEST: No significant abnormality. LIVER: No significant abnormality. GALLBLADDER: Cholelithiasis. BILE DUCTS: No significant abnormality. PANCREAS: No significant abnormality. SPLEEN: No significant abnormality. ADRENALS: No significant abnormality. RIGHT KIDNEY and URETER: Severe atrophy. LEFT KIDNEY and URETER: Severe atrophy. STOMACH and SMALL BOWEL: No significant abnormality. COLON: No significant abnormality. APPENDIX: No significant abnormality. PERITONEUM: No free fluid. No free air. No fluid collection. LYMPH NODES: No significant adenopathy. AORTA and ARTERIES: No significant abnormality. IVC and VEINS: No significant abnormality. URINARY BLADDER: No significant abnormality. REPRODUCTIVE ORGANS: No significant abnormality. ADDITIONAL FINDINGS: The right lower quadrant transplanted kidney demonstrates mild perinephric stranding. There appears to be slight right hydronephrosis.. 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 IMPRESSION: 1. Mildly enlarged right renal transplant with evidence of mild perinephric inflammation.. There is mild prominence of the right collecting system. Ultimately the right renal transplant demonstrates perinephric stranding which is ultimately nonspecific and could be secondary to mild obstruction versus underlying primary transplant abnormality. Pyelonephritis cannot be excluded. No obstructive right ureteral calculus is identified. Signer Name: sAhvin Davis MD Signed: 01/17/2022 1:58 AM Workstation Name: [id number] Transcribed By: Dictated By: Ashvin Davis MD Electronically Authenticated By: Ashvin Davis MD Signed Date/Time: 01/17/22157 DD/ 015 TD/TT: - Medical Decision Making Slight increased opacity within the right lower lung suspicious for developing pneumonitis, there is no fever no chills no nausea no vomiting. Creatinine noted at 2.7 baseline for this patient is 2-2.2. Patient denies hematuria dysuria frequency or urgency. CT abdomen and pelvis: No obstruction mildly enlarged transplanted kidney. There is no fevers no chills no nausea vomiting patient is tolerating p.o. intake without problems at this time. Patient does advise symptoms improved with medications given in ED plan DC to home, continue to take current medication regimen per nephrology, patient will be DC'd to home with additional prescription. Patient will return to ED should symptoms worsen. Patient verbalized agreement and understanding of discharge plan. Patient DC'd home in stable condition at this time. Critical care attestation.: If time is entered above; I have spent that time in minutes in the direct care of this critically ill patient, excluding procedure time. ED Disposition Clinical Impression: CAP (community acquired pneumonia) Qualifiers: Laterality: right Lung location: unspecified part of lung Qualified Code(s): J18.9 - Pneumonia, unspecified organism Disposition: HOME / SELF CARE / HOMELESS Is pt being admited?: No Does the pt Need Aspirin: No Condition: Stable Instructions: Bacterial Pneumonia (ED), Community-Acquired Pneumonia, Adult, [id number] Additional Instructions: Take medication as prescribed, follow-up with nephrology for medication refill as directed. Return to emergency department should symptoms worsen. Prescriptions: levoFLOXacin [Levaquin TAB] 500 mg PO QDAY 7 Days #7 tablet Albuterol Mdi (or & Nicu Only) [ProAir HFA Inhaler] 2 puff IH QID PRN #8.5 gram PRN Reason: Shortness Of Breath Acetaminophen [Tylenol] 650 mg PO Q6H PRN #30 cap PRN Reason: pain Referrals: THA WHITLOCK MD [Primary Care Provider] - 3-5 Days SHAUNA TALBOT MD [Staff Physician] - 3-5 Days Forms: Work/School Release Form(ED) Time of Disposition: 03:14
--- NOTE | 2022-01-16 23:37 | XRay Report ---
CHEST 2 VIEWS INDICATION / CLINICAL INFORMATION: cough malaise , chills,. FINDINGS: SUPPORT DEVICES: None. HEART / MEDIASTINUM: No significant abnormality. LUNGS / PLEURA: Slight increased opacity within the right lower lung suspicious for developing pneumo nitis. The left lung is grossly unremarkable. Signer Name: Ashvin Davis MD Signed: 01/16/2022 11:33 PM Workstation Name: [id number]
[2022-01-16 23:47] LABS: Basophils # (Auto) 0.1 K/mm3 (0.0-0.1); Basophils % (Auto) 0.9 % (0.0-1.8); Eosinophils # (Auto) 0.3 K/mm3 (0.0-0.4); Eosinophils % (Auto) 4.4 % (0.0-4.3); Hematocrit 41.3 % (35.5-45.6); Hemoglobin 13.7 gm/dl (11.8-15.2); Lymphocytes # (Auto) 1.5 K/mm3 (1.2-5.4); Lymphocytes % (Auto) 24.4 % (13.4-35.0); Mean Corpuscular HGB Conc 33 % (32-34); Mean Corpuscular Volume 88 fl (84-94); Monocytes # (Auto) 0.3 K/mm3 (0.0-0.8); Monocytes % (Auto) 5.3 % (0.0-7.3); Platelet Count 291 K/mm3 (140-440); Red Blood Count 4.71 M/mm3 (3.65-5.03); Red Cell Distribution Width 17.6 % (13.2-15.2)
[2022-01-17 00:06] LABS: Albumin 4.1 g/dL (3.9-5); Calcium 10.8 mg/dL (8.4-10.2)
[2022-01-17] MEDS ORDERED: cefTRIAXone/NS 1 GM/50 ML 1 GM/50 ML BAG IV ONE (00:17)
[2022-01-17] MEDS ORDERED: SODIUM CHLORIDE 0.9% 1000 ML 1,000 ML IV ONE (00:17)
--- NOTE | 2022-01-17 02:03 | Cat Scan Report ---
CT ABDOMEN AND PELVIS WITHOUT CONTRAST INDICATION / CLINICAL INFORMATION: Lower abd pain. Hx of a renal transplant 2017, Stone(s) vs. Pyelo. TECHNIQUE: Axial CT images were obtained through the abdomen and pelvis without IV contrast. All CT scans at [facility] location are performed using CT dose reduction for ALARA by means of automated exposure control. COMPARISON: None available. FINDINGS: LOWER CHEST: No significant abnormality. LIVER: No significant abnormality. GALLBLADDER: Cholelithiasis. BILE DUCTS: No significant abnormality. PANCREAS: No significant abnormality. SPLEEN: No significant abnormality. ADRENALS: No significant abnormality. RIGHT KIDNEY and URETER: Severe atrophy. LEFT KIDNEY and URETER: Severe atrophy. STOMACH and SMALL BOWEL: No significant abnormality. COLON: No significant abnormality. APPENDIX: No significant abnormality. PERITONEUM: No free fluid. No free air. No fluid collection. LYMPH NODES: No significant adenopathy. AORTA and ARTERIES: No significant abnormality. IVC and VEINS: No significant abnormality. URINARY BLADDER: No significant abnormality. REPRODUCTIVE ORGANS: No significant abnormality. ADDITIONAL FINDINGS: The right lower quadrant transplanted kidney demonstrates mild perinephric stran ding. There appears to be slight right hydronephrosis.. 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 IMPRESSION: 1. Mildly enlarged right renal transplant with evidence of mild perinephric inflammation.. There is m ild prominence of the right collecting system. Ultimately the right renal transplant demonstrates per inephric stranding which is ultimately nonspecific and could be secondary to mild obstruction versus underlying primary transplant abnormality. Pyelonephritis cannot be excluded. No obstructive right ur eteral calculus is identified. Signer Name: Ashvin Davis MD Signed: 01/17/2022 1:58 AM Workstation Name: [id number]
== END 2022-01-17 03:23 | disposition home or self-care (01) ==
LOC: ED 13:19
DX: J18.9 Pneumonia, unspecified organism (principal); I10 Essential (primary) hypertension; F17.200 Nicotine dependence, unspecified, uncomplicated; Z88.6 Allergy status to analgesic agent; Z79.899 Other long term (current) drug therapy
CPT/HCPCS: 36415; 71046; 74176; 80053; 82140; 82962; 85025; 96365; 99284; J0696; J7030; Q0162